=== PATIENT | female | born 1970 | race Caucasian/White ===

== ENCOUNTER → 2023-12-30 10:01 | Outpatient (REF) | payer OTHER, SELFPAY | LOC: RAD 10:01 | PROVIDERS: ATTENDING PHYSICIAN Physician Assistant | DX: S89.92XA Unspecified injury of left lower leg, initial encounter (principal) | CPT/HCPCS: 73590 ==

== ENCOUNTER → 2024-02-01 15:24 | Outpatient (REF) | payer OTHER, SELFPAY | LOC: WDC 15:24 | PROVIDERS: ATTENDING PHYSICIAN Nurse Practitioner Adult Health; FAMILY PHYSICIAN Family Medicine | DX: Z12.31 Encounter for screening mammogram for malignant neoplasm of breast (principal) | CPT/HCPCS: 77063; 77067 ==

== ENCOUNTER → 2024-02-17 15:24 | Outpatient (REF) | payer OTHER, SELFPAY | LOC: HWRAD 15:24 | PROVIDERS: ATTENDING PHYSICIAN Family Medicine | DX: M85.89 Other specified disorders of bone density and structure, multiple sites (principal) | CPT/HCPCS: 77080 ==

== ENCOUNTER → 2024-06-08 10:06 | Outpatient (REF) | payer OTHER, SELFPAY | LOC: HWRAD 10:06 | PROVIDERS: ATTENDING PHYSICIAN Obstetrics & Gynecology Gynecologic Oncology; FAMILY PHYSICIAN Family Medicine | DX: Z15.09 Genetic susceptibility to other malignant neoplasm (principal); Z12.31 Encounter for screening mammogram for malignant neoplasm of breast; R10.30 Lower abdominal pain, unspecified | CPT/HCPCS: 76830; 76856 ==

== ENCOUNTER → 2024-06-12 08:36 | Outpatient (REF) | payer OTHER, SELFPAY | LOC: RAD 08:36 | PROVIDERS: ATTENDING PHYSICIAN Obstetrics & Gynecology Gynecologic Oncology; FAMILY PHYSICIAN Family Medicine | DX: Z15.09 Genetic susceptibility to other malignant neoplasm (principal); Z12.31 Encounter for screening mammogram for malignant neoplasm of breast; R10.30 Lower abdominal pain, unspecified | CPT/HCPCS: 71260; 74177; Q9967 ==

== ENCOUNTER → 2024-07-11 06:28 | Day surgery (SDC) | payer OTHER, SELFPAY | LOC: GI 06:28 | PROVIDERS: ATTENDING PHYSICIAN Internal Medicine | DX: Z15.09 Genetic susceptibility to other malignant neoplasm (principal); K22.9 Disease of esophagus, unspecified; K29.70 Gastritis, unspecified, without bleeding; C19 Malignant neoplasm of rectosigmoid junction; K29.50 Unspecified chronic gastritis without bleeding; B37.81 Candidal esophagitis | CPT/HCPCS: 43239; 45378; 88305; 88342 ==

== ENCOUNTER 2024-09-12 06:10 | Day surgery (SDC) | payer OTHER, SELFPAY ==
[2024-08-29 08:23] VITALS: BMI 24.2
[2024-08-29 08:53] LABS: % Basophils 0.4 % (0-2); % Eosinophils 1.6 % (0-6); % Immature Granulocytes 0.3 % (0-0.5); % Lymphocytes 17.5 % (20.5-51.1); % Monocytes 6.5 % (1.7-9.3); % Neutrophils 73.7 % (42.2-75.2); Absolute Eosinophils 0.1 10^3/uL (0-0.7); Absolute Lymphocytes 1.2 10^3/uL (1.2-3.4); Absolute Monocytes 0.5 10^3/uL (0.1-0.6); Absolute Neutrophils 5.1 10^3/uL (1.4-6.5); Hemoglobin 15.2 g/dL (12.0-16.0); Mean Corp Hgb Conc. 33.8 g/dL (33.0-37.0); Mean Corpuscular Hgb 28.8 pg (27.0-31.0); Mean Corpuscular Volume 85.2 fL (81.0-99.0); Mean Platelet Volume 9.5 fL (7.4-10.4); Nucleated Red Blood Cells % 0 %; Platelet Count 250 10^3/uL (130-400); Red Blood Cell Count 5.28 10^6/uL (4.20-5.40); Red Cell Dist. Width 12.7 % (11.5-14.5); White Blood Cell Count 6.9 10^3/uL (4.8-10.8)
[2024-08-29 09:27] LABS: ALT (SGPT) 56 U/L (0-35); AST (SGOT) 38 U/L (14-36); Albumin 4.8 g/dl (3.5-5.0); Alkaline Phosphatase 99 U/L (38-126); Blood Urea Nitrogen 17 mg/dl (7-17); Calcium 9.9 mg/dl (8.4-10.2); Carbon Dioxide 28 mmol/L (22-30); Chloride 101 mmol/L (98-107); Estimated Creatinine Clearance 49 ml/min; Glucose 102 mg/dl (70-99); Potassium 4.3 mmol/L (3.5-5.1); Sodium 142 mmol/L (135-145); Total Bilirubin 0.7 mg/dl (0.2-1.3); Total Protein 7.7 g/dl (6.3-8.2); eGFR > 60.00
--- NOTE | 2024-09-11 16:33 | W.CON.GYNONC ---
Chief Complaint
-
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
History of Present Illness
53 yo �0�0�3 white female presenting for initial consultation referred to me by a genetic counselor. She undergoes routine
gynecologic examination, has been a resident in this area for 7 years. Gynecologic exam typically performed by Siri Quigley. She
has had 3 prior vaginal deliveries 1824 and 29 years ago
Patient is status post open abdominal hysterectomy in 2013 in [place].
She feels that she has been menopausal for approximately 1�1/2�year
Past medical history significant for seasonal allergies, cystic acne and GERD
Past surgical history includes breast lumpectomy as well as hysterectomy
Family history significant for mother with sebaceous cyst carcinoma the workup of which revealed Jacobs syndrome. Maternal
grandfather with pancreatic and liver cancer, maternal grand father with stomach cancer, 2 maternal aunts with breast cancer
Patient denies any tobacco alcohol drug and marijuana use
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
She is , she is in a relationship and is sexually active
She is here today with complaints of light mucus pink discharge with wiping. Some vaginal burning no itching It started after
intercourse but has not had intercourse for a month and is still seeing it. Denies pain with urination but long hx of frequent urination
followed by urology. Has not had a pap since her hysterectomy.
Medical History
Allergies
Allergies reflect when allergies were last updated in [facility].
minocycline Allergy (Verified 09/04/24 15:51)
Hives
prednisone Allergy (Verified 09/04/24 15:51)
Hives
Sulfa (Sulfonamide Antibiotics) Allergy (Verified 09/04/24 15:51)
redness/swelling
Physical Exam
Physical Exam
Ckuwep=493.80lb, Temp=97.3f, Pulse=93, Resp=18, ZupajladDZ=177, DiastolicBP=75, O2
Sat=98%
ECOG 0: Fully active, able to carry on all pre�disease performance without restriction
Physical Exam
Pelvic Examination:
External normal labia, urethra, anus.
Vagina: Normal mucosa. The posterior fourchette at the vaginal opening is minimal erythema, tender to palpation
no obvious discharge or bleeding
Adnexa: No pelvic mass.
RVE: no masses or nodularity
General: Well developed, well nourished patient. In no acute distress.
Neck: No thyromegaly. No cervical lymphadenopathy.
Lungs: Clear to auscultation. Good air movement bilaterally.
Cardiac: Regular rate. Regular rhythm. No murmurs appreciated.
Abdomen: Abdomen is soft. Non�tender to palpation. Non�distended.
Extremities: No edema.
Hematologic/Lymphatic: No palpable lymphadenopathy.
Musculoskeletal: Normal range of motion. Strength and Tone are normal.
Neurologic: Speech is fluent. Normal gait and station. Cranial nerves intact.
Results
-
08/29/24 07:42
08/29/24 07:42
CT�chest�abdomen�and�pelvis�Jessie�2024�shows�chest�to�be�normal.�There�is�a�1.8�cm�lesion�lateral�left�hepatic�lobe�demonstrating
enhancement�matching�consistent�with�hemangioma,�focal�fatty�infilteration�along�the�falciform�ligament.�There�is�a�dilated�blind
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
There�is�no�enlarged�lymph�nodes�Premier�bowel�was�within�normal�limits.�Ovaries�cannot�be�seen�distinctly.�There�is�a�small�fatcontaining�umbilical�hernia.
Impression / Plan
-
I spoke with the patient and her mother today, I printed and reviewed NCCN guidelines regarding multiple cancers related to MSH6.
Top 3 concerns include colorectal cancers, endometrial and ovarian cancer. She is status post hysterectomy.
Patient is up date with colonoscopy and endoscopy,
Tumor marker CA125 and CEA was normal which is reassuring
I am moving forward with recommendation for risk�reducing bilateral salpingo�oophorectomy . Current risk of ovarian cancer is
approximately 13% compared to average baseline population which is at 1 to 2%. At the same time appendectomy will also be
done based on the results of the CT above. In my opinion she can be significantly helped with potential risk of ovarian cancer if she
chooses to undergo surgery. Appendectomy will be performed at the same time.
Informed consent was signed in the office today, we will proceed with surgery as planned September 10.
[2024-09-12] VITALS (18 sets, daily range): BP systolic 88–118; BP diastolic 48–83; BMI 24.2
[2024-09-12] MEDS: NEURONTIN 300 MG PO (06:50)
[2024-09-12] MEDS: TYLENOL 1000 MG PO (06:50)
[2024-09-12] MEDS: HEPARIN 5000 UNITS SC (06:50)
[2024-09-12] MEDS: MOBIC 15 MG PO (07:27)
--- NOTE | 2024-09-12 09:18 | OR.RPT ---
Operative Report
Operative Report
Date of procedure: September 12, 2024
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
Postoperative diagnosis: Same plus bilateral normal-appearing tubes and ovaries, appendix with mucocele
Surgeon: Brody Ramírez MD
Assist: Loraine Contreras PA-C
Procedure:
Robotic assisted laparoscopic bilateral salpingo-oophorectomy with intra-abdominal lysis of adhesions
Robotic assisted laparoscopic appendectomy
Anesthesia: General Endotracheal intubation
Estimated blood loss: 50 cc
Complication: None
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 She has had a prior total abdominal hysterectomy as an open laparotomy procedure. Preoperative imaging revealed presence of a
appendiceal mass suggestive of mucocele. GI imaging EGD colonoscopy have been otherwise normal. She is desirous of bilateral salpingo-oophorectomy for cancer prevention.
Procedure in detail: This patient was brought to the operating room and placed in supine position general anesthesia was administered she was intubated without any difficulty, appropriate IVs were placed by anesthesia team, OG tube was placed. Tap
block was performed by anesthesia. She was placed in lithotomy position using yellowfin stirrups, she was prepped on the abdomen perineum and vagina, Caballero catheter was placed to drain the bladder. Timeout procedure was carried out she had
received Ancef 2 g and Flagyl 500 mg. She had received DVT prophylaxis with heparin subcutaneous injection preoperatively. Next Veress needle was inserted just below left subcostal margin into the peritoneal cavity and insufflation with CO2 gas
was performed up to pressure of 15 mmHg. 8 mm X Xi robotic port was introduced approximately 25 cm cephalad to symphysis pubis into the peritoneal cavity,
video camera was used to survey the upper abdomen, right and left diaphragms are normal, the right lobe of the liver appears to have significant area of fibrosis, left lobe is normal. Spleen and stomach and omentum are unremarkable. There are some
adhesions of the omentum to the right lower quadrant and right paracolic gutter peritoneum. Uterus is absent peritoneal surfaces are without any nodularity or carcinomatosis.
Next we went ahead and placed 8 mm robotic ports in the right upper quadrant left upper quadrant and left lateral abdomen and a 12 mm port was placed in the right lower quadrant. The patient was placed in 30 degree Trendelenburg and robotic system
was docked. We took down the adhesions of the omentum to the right pelvic sidewall and right lower quadrant and right paracolic gutter in order to expose external iliac vessels. We turned our attention to the left side, the sigmoid colon epiploica
was adherent to the left ovary and the left ovary was adherent to the stump of left round ligament. Round ligament was sealed and divided, attachments of the pericolonic tissue to the left adnexa and left ovary were taken down until the ovary was
completely freed up. The retroperitoneum was opened and infundibulopelvic ligament was freed up and isolated. The course of the ureter was visualized while it was vermiculation. A window was created between ureter and IP ligament. IP ligament
was sealed 3 times and divided. Left tube and ovary was placed in a 5 mm laparoscopic bag for future retrieval. Attention was turned to the right ovary. The right ovary was adherent to the right pelvic sidewall, it was retracted medially, the
retroperitoneum was opened external iliac vessel was visualized, retroperitoneum was explored and the course of the ureter was directly visualized while it was vermiculating. An avascular window was opened between ureter and IP ligament and the IP
ligament was developed above the pelvic brim. IP ligament was sealed 3 times and divided the right tube and ovary was placed in a 5 mm laparoscopic bag and immediately removed through the 12 mm right lower quadrant port. Next we mobilized the
cecum, mesoappendix was examined and visualized, it was divided into 3 pedicles and sealed with bipolar cautery and divided. We used a Endo JOHNNY stapler with a 45 mm - 1.5 mm load to staple across the cecum below the base of the appendix. Stapler
was fired and the specimen of the appendix was placed in a 10 mm endoscopic bag. We examined the cecum and 3 rows of jac had already been fired. At this point all operative sites were examined and there was no evidence of bleeding. We
proceeded to remove all instruments and undocked the robotic system pneumoperitoneum was released. Left tube and ovary as well as appendix was removed from the 12 mm port site. The fascia at the 12 mm port site was closed with 0 Vicryl suture in a
[id number]-[id number] fashion. 4-0 Monocryl suture was used to close the skin incisions and all laparoscopic ports using subcuticular closure in an interrupted fashion. All incisions were injected with Marcaine. Caballero catheter was removed. The patient
was awakened extubated and returned back to recovery room stable awake and extubated condition. Counts of laps instruments and needle was correct x 2. I was present and scrubbed for entire procedure as dictated above.
Disposition: To PACU, awake and extubated
== END 2024-09-12 13:00 | disposition home or self-care (01) ==
LOC: SDS 06:10
PROVIDERS: ATTENDING PHYSICIAN Obstetrics & Gynecology Gynecologic Oncology; FAMILY PHYSICIAN Family Medicine
DX: C18.1 Malignant neoplasm of appendix (principal); K66.0 Peritoneal adhesions (postprocedural) (postinfection); Z15.09 Genetic susceptibility to other malignant neoplasm; Z90.710 Acquired absence of both cervix and uterus
CPT/HCPCS: 58661; 44970; 88304; 88305; 88307; 36415; 80053; 85025; 86850; 86900; 86901; 88342; 93005; 94002

== ENCOUNTER 2025-01-24 11:50 | Inpatient (IN) | payer OTHER, SELFPAY ==
[2025-01-17 08:59] LABS: Hemoglobin 15.2 g/dL (12.0-16.0); Mean Corp Hgb Conc. 32.3 g/dL (33.0-37.0); Mean Corpuscular Hgb 28.6 pg (27.0-31.0); Mean Corpuscular Volume 88.5 fL (81.0-99.0); Mean Platelet Volume 9.4 fL (7.4-10.4); Platelet Count 228 10^3/uL (130-400); Red Blood Cell Count 5.31 10^6/uL (4.20-5.40); Red Cell Dist. Width 12.6 % (11.5-14.5); White Blood Cell Count 6.4 10^3/uL (4.8-10.8)
[2025-01-17 09:26] LABS: APTT 30.3 Sec (23.4-35.0); Glycohemoglobin (HgbA1c) 5.5 % (4.0-5.6); INR 0.84
[2025-01-17 10:05] LABS: ALT (SGPT) 64 U/L (0-35); AST (SGOT) 39 U/L (14-36); Alkaline Phosphatase 131 U/L (38-126); Blood Urea Nitrogen 23 mg/dl (7-17); Calcium 10.1 mg/dl (8.4-10.2); Carbon Dioxide 29 mmol/L (22-30); Chloride 99 mmol/L (98-107); Glucose 102 mg/dl (70-99); Potassium 4.4 mmol/L (3.5-5.1); Sodium 139 mmol/L (135-145); Total Protein 8.1 g/dl (6.3-8.2); eGFR > 60.00
[2025-01-17 10:49] LABS: CEA 0.36 ng/ml
[2025-01-17 14:15] VITALS: BMI 22.5
[2025-01-24] VITALS (10 sets, daily range): BP systolic 95–121; BP diastolic 51–82; BMI 22.5
[2025-01-24] MEDS: NORMOSOL-R/PLASMALYTE-A 1000 IV ×2 (12:15→20:16)
[2025-01-24] MEDS: TYLENOL 1000 MG PO (12:20)
[2025-01-24] MEDS: HEPARIN 5000 UNITS SC (12:20)
[2025-01-24] MEDS: ENTEREG 12 MG PO (12:20)
--- NOTE | 2025-01-24 18:40 | W.OR.COLCA ---
Colon Cancer Post Op Note
Immediate Post Op
Primary Surgeon: David Izaguirre MD
Assistants: SUSIE Gamboa and MAVIS Seay
Pre-op Diagnosis: History of appendiceal cancer, HNPCC
Post-op Diagnosis: Same
Procedure Performed: Robotic right colectomy with intracorporeal anastomosis & primary repair of umblical hernia
Anesthesia Type: GET
Specimen / Cultures: Right colon
Estimated Blood Loss: 17cc
Complications: None
Operative Findings: No evidence of metastatic disease
Isoperistaltic, intracorporeal anastomosis
1 cm umbilical hernia
Patient's SO updated in the waiting room.
Colon Resection
Colon Resection
Operation performed with curative intent: Yes
Tumor Location: Cecum (appendix)
Right Hemicolectomy: Ileocolic and Right Colic
[2025-01-24] MEDS: ZOFRAN 4 MG IV (18:50)
[2025-01-24] MEDS: COMPAZINE 5 MG IV (19:22)
[2025-01-24] MEDS: ZYRTEC 10 MG PO (21:46)
[2025-01-24] MEDS: TYLENOL 650 MG PO ×2 (21:46→23:25)
--- NOTE | 2025-01-24 23:12 | PTCARENOTE ---
Pt arrived from PACU 1954. Pt AAOX3, but drowsy. VSS. IVF infusing. Caballero draining yellow urine. 5 lap sites and 1 transverse OA with surgical glue. Head to toe assessment complete. oriented to room and call vitale. bed in lowest position and locked.
family at bedside. care ongoing.
[2025-01-24] MEDS: TORADOL 15 MG IV (23:25)
[2025-01-25] VITALS (7 sets, daily range): BP systolic 103–112; BP diastolic 50–67; BMI 23.7
[2025-01-25] MEDS: TORADOL 15 MG IV ×3 (05:04→17:23)
[2025-01-25] MEDS: TYLENOL 650 MG PO ×5 (05:04→20:59)
[2025-01-25] MEDS: NORMOSOL-R/PLASMALYTE-A 1000 IV ×2 (06:03→06:06)
[2025-01-25 07:14] LABS: % Immature Granulocytes 0.5 % (0-0.5); % Lymphocytes 4.4 % (20.5-51.1); % Monocytes 3.7 % (1.7-9.3); % Neutrophils 91.4 % (42.2-75.2); Absolute Immature Granulocytes 0.1 10^3/uL (0-0.05); Absolute Lymphocytes 0.5 10^3/uL (1.2-3.4); Absolute Monocytes 0.4 10^3/uL (0.1-0.6); Absolute Neutrophils 9.8 10^3/uL (1.4-6.5); Hematocrit 38.9 % (37.0-47.0); Hemoglobin 13.1 g/dL (12.0-16.0); Mean Corp Hgb Conc. 33.7 g/dL (33.0-37.0); Mean Corpuscular Volume 86.3 fL (81.0-99.0); Mean Platelet Volume 9.7 fL (7.4-10.4); Nucleated Red Blood Cells % 0 %; Platelet Count 193 10^3/uL (130-400); Red Blood Cell Count 4.51 10^6/uL (4.20-5.40); Red Cell Dist. Width 12.4 % (11.5-14.5); White Blood Cell Count 10.7 10^3/uL (4.8-10.8)
[2025-01-25 07:53] LABS: Blood Urea Nitrogen 11 mg/dl (7-17); Carbon Dioxide 22 mmol/L (22-30); Chloride 105 mmol/L (98-107); Estimated Creatinine Clearance 61 ml/min; Glucose 113 mg/dl (70-99); Sodium 138 mmol/L (135-145); eGFR > 60.00
[2025-01-25] MEDS: ENTEREG 12 MG PO ×2 (07:59→20:18)
[2025-01-25] MEDS: PROTONIX 40 MG PO (07:59)
[2025-01-25] MEDS: ALDACTONE 100 MG PO (08:00)
[2025-01-25 08:39] LABS: Potassium 4.1 mmol/L (3.5-5.1)
--- NOTE | 2025-01-25 14:16 | CM ---
Initial assessment completed
Pt lives with her 3 adult children in a 2 story home; 2 steps to enter, 12 steps to 2nd fl
Independent at baseline, employed, drives
DME - none
SNF/HH - no past hx
Has ride at d/c
PCP - Abraham Ferrera
Pharm -[facility] in [place]
Plan - anticipate home no needs
--- NOTE | 2025-01-25 15:16 | W.PN.CRS1 ---
Today's Communication / Plan
-
as below
Assessment/Plan
-
54-year-old female with history of appendiceal cancer, presents for elective surgery
POD 1 robotic right hemicolectomy
AFVSS
WBC 10.7, Hb 13.1, Cr 0.8
� If tolerating clears, okay to advance to full's for dinner
� Pain control with Tylenol, Toradol, oxycodone, Dilaudid as needed; continue Entereg until discharge
� Will start DVT PPx with Lovenox
� DC Caballero, monitor for void
� Encourage I-S, OOB
Subjective Data
Subjective Data
Date of Service: January 25, 2025
No overnight events. Denies any N/V. No gas or bowel movements yet. + Caballero. Pain controlled.
Objective Data
-
Vital Signs
Temp Pulse Resp BP Pulse Ox
97.9 F 95 16 108/67 98
01/25/25 11:52 01/25/25 11:52 01/25/25 11:52 01/25/25 11:52 01/25/25 11:52
Intake & Output
01/24/25 01/25/25 01/26/25
06:59 06:59 06:59
Intake Total 1680 / 1680
Output Total 1200 / 1200
Balance 480 / 480
Intake:
Oral fluids 480 / 480
IV fluids (Total) 1200 / 1200
Normosol 100 / 100
Output:
Urine, Caballero 1200 / 1200
Lab Results
01/25/25 06:06
01/25/25 06:06
Physical Exam
-
General: No Acute Distress and AOx3
HEENT: Grossly Normal
Abdomen: Soft, Non Distended, Tender (Appropriately tender near incisions), No Guarding and No Rebound
Skin: Warm and Dry
Wound: No Signs of Infection and No Skin Erythema
[2025-01-25] MEDS: NORMOSOL-R/PLASMALYTE-A IV (16:54)
[2025-01-25] MEDS: LOVENOX 40 MG SC (17:23)
[2025-01-25] MEDS: ZYRTEC 10 MG PO (20:18)
[2025-01-26] MEDS: TORADOL 15 MG IV ×3 (00:55→11:51)
[2025-01-26] MEDS: TYLENOL 650 MG PO ×3 (00:55→11:50)
[2025-01-26] MEDS: NORMOSOL-R/PLASMALYTE-A IV (02:46)
[2025-01-26] MEDS: TYLENOL PO (05:00)
[2025-01-26 06:00] VITALS: BMI 23.2
[2025-01-26 07:15] VITALS: BP 109/64
[2025-01-26 08:01] LABS: % Basophils 0.3 % (0-2); % Eosinophils 0.6 % (0-6); % Immature Granulocytes 0.4 % (0-0.5); % Monocytes 6.8 % (1.7-9.3); % Neutrophils 71.9 % (42.2-75.2); Absolute Eosinophils 0.1 10^3/uL (0-0.7); Absolute Lymphocytes 1.9 10^3/uL (1.2-3.4); Absolute Monocytes 0.7 10^3/uL (0.1-0.6); Hematocrit 38.5 % (37.0-47.0); Hemoglobin 12.6 g/dL (12.0-16.0); Mean Corp Hgb Conc. 32.7 g/dL (33.0-37.0); Mean Corpuscular Hgb 28.5 pg (27.0-31.0); Mean Corpuscular Volume 87.1 fL (81.0-99.0); Mean Platelet Volume 9.6 fL (7.4-10.4); Nucleated Red Blood Cells % 0 %; Platelet Count 184 10^3/uL (130-400); Red Blood Cell Count 4.42 10^6/uL (4.20-5.40); Red Cell Dist. Width 12.6 % (11.5-14.5); White Blood Cell Count 9.7 10^3/uL (4.8-10.8)
[2025-01-26] MEDS: PROTONIX 40 MG PO (08:14)
[2025-01-26] MEDS: ALDACTONE 100 MG PO (08:14)
[2025-01-26] MEDS: ENTEREG 12 MG PO (08:15)
[2025-01-26 08:44] LABS: Blood Urea Nitrogen 14 mg/dl (7-17); Carbon Dioxide 29 mmol/L (22-30); Chloride 104 mmol/L (98-107); Estimated Creatinine Clearance 61 ml/min; Glucose 88 mg/dl (70-99); Potassium 3.7 mmol/L (3.5-5.1); Sodium 138 mmol/L (135-145); eGFR > 60.00
--- NOTE | 2025-01-26 10:14 | W.PN.CRS1 ---
Today's Communication / Plan
-
low residue diet
likely d/c later today
Assessment/Plan
-
54-year-old female with history of appendiceal cancer, presents for elective surgery
POD 2 robotic right hemicolectomy
AFVSS, labs normal
� Advanced to low residue diet
� Pain control with Tylenol, Toradol, oxycodone, Dilaudid as needed; continue Entereg until discharge
� DVT PPx with Lovenox, TEDs/SCDS in place
� Voiding post espana removal
� Encourage I-S, OOB
- Okay for discharge later today if tolerating a diet. All discharge instructions discussed with patient including mediations, activity levels, and follow up. All questions answered.
Subjective Data
Procedure
01/24/2025- robotic right hemicolectomy
Subjective Data
Date of Service: January 26, 2025
Patient states she is doing well. She has flatus. Her pain is controlled. She denies nausea or vomiting.
Objective Data
-
Vital Signs
Temp Pulse Resp BP Pulse Ox
98.5 F 84 16 109/64 97
01/26/25 07:15 01/26/25 07:15 01/26/25 07:15 01/26/25 07:15 01/26/25 07:15
Intake & Output
01/25/25 01/26/25 01/27/25
06:59 06:59 06:59
Intake Total 1680 / 1680 1960 / 1960 240 / 240
Output Total 1200 / 1200 2800 / 2800
Balance 480 / 480 -840 / -840 240 / 240
Intake:
Oral fluids 480 / 480 960 / 960 240 / 240
IV fluids (Total) 1200 / 1200 1000 / 1000
Normosol 100 / 100
Output:
Urine, [place] 1200 / 1200 1300 / 1300
Urine, Voided 1500 / 1500
Other:
Number of approximated MODERATE 2 1
amounts of urine
Lab Results
01/26/25 05:55
01/26/25 05:55
Physical Exam
-
General: No Acute Distress and AOx3
Abdomen: Soft, Non Distended and Tender (mild around incisions)
Skin: Warm and Dry
Incision: Clear, Dry, Intact
--- NOTE | 2025-01-26 10:18 | W.DS.TRANS ---
DC Summary - Charge Aide
-
Discharge Instructions:
Sleep Apnea Risk Low
Discharge Diagnosis/Procedures Robotic right colectomy with intracorporeal
anastomosis & primary repair of umblical hernia
Diet Low Residue
Activity No strenuous activity
Additional Activity No lifting over 10lbs (gallon of milk)
Driving Restrictions No driving for 1 week
Bathing Restrictions OK to Shower
Wound Care Allow glue to naturally fall off. Do not pick at
incisions.
Instructions: Low-fiber diet
Stand-Alone Forms:
Changes to Home Medications: No
Discharge Medications:
DC Medications w/original date entered in [facility]
Magnesium With Silica 300 mg PO HS 09/04/24
Multivitamin Women 50 Plus 1 tab PO DAILY 09/04/24
Plant Calcium Bone Strength 1 tab PO QPM 09/04/24
Probiotic 1 cap PO QPM 09/04/24
levocetirizine 5 mg tablet 5 mg PO HS 09/04/24
lifitegrast 5 % eye drops in a dropperette (Xiidra) 1 drp ophthalmic (eye) Q12H 09/04/24
spironolactone 50 mg tablet 100 mg PO DAILY 09/04/24
tretinoin 0.05 % lotion ([place]) 1 applic topical HS 09/04/24
Gaviscon Extra Strength 1 dose PO BID 01/12/25
estradiol 1 applic topical .2 TIMES A WEEK 01/12/25
pantoprazole 40 mg tablet,delayed release 40 mg PO DAILY 01/12/25
Home Medication Changes
Pending Results: Yes
Additional Pending Results:
OR pathology
--- NOTE | 2025-01-26 10:34 | CM ---
Chart reviewed; met with pt
Pt for discharge today
Reports has ride home
Plan - home no needs
[2025-01-26] MEDS: FLUSH (NSS) 2 FLUSH IV (11:53)
[2025-01-26 15:05] VITALS: BP 101/62
== END 2025-01-26 16:00 | disposition home or self-care (01) | DRG 331 ==
LOC: 2 SOUTH 11:50
PROVIDERS: Physician Assistant; ADMITTING PHYSICIAN Surgery; FAMILY PHYSICIAN Family Medicine
PROC: 0WQF4ZZ Repair Abdominal Wall, Percutaneous Endoscopic Approach (ICD-10-PCS; 2025-01-24)
PROC: 8E0W4CZ Robotic Assisted Procedure of Trunk Region, Percutaneous Endoscopic Approach (ICD-10-PCS; 2025-01-24)
PROC: 0DTF4ZZ Resection of Right Large Intestine, Percutaneous Endoscopic Approach (ICD-10-PCS; 2025-01-24)
DX: C18.1 Malignant neoplasm of appendix (principal); K42.9 Umbilical hernia without obstruction or gangrene; Z85.038 Personal history of other malignant neoplasm of large intestine; Z15.09 Genetic susceptibility to other malignant neoplasm
CPT/HCPCS: 88307; 36415; 80048; 80053; 82378; 83036; 85025; 85027; 85610; 85730; 86850; 86900; 86901; 93005; J1335

== ENCOUNTER → 2025-03-06 14:49 | Outpatient (REF) | payer OTHER, SELFPAY | LOC: WDC 14:49 | PROVIDERS: ATTENDING PHYSICIAN Nurse Practitioner Adult Health; FAMILY PHYSICIAN Internal Medicine; PRIMARYCARE PHYSICIAN Family Medicine | DX: Z12.31 Encounter for screening mammogram for malignant neoplasm of breast (principal) | CPT/HCPCS: 77063; 77067 ==

== ENCOUNTER → 2025-04-26 12:49 | Outpatient (REF) | payer OTHER, SELFPAY | LOC: WDC 12:49 | PROVIDERS: ATTENDING PHYSICIAN Obstetrics & Gynecology Gynecologic Oncology; FAMILY PHYSICIAN Family Medicine | DX: R92.2 Inconclusive mammogram (principal) | CPT/HCPCS: 76641 ==

== ENCOUNTER 2025-07-12 06:20 | Day surgery (SDC) | payer OTHER, SELFPAY | END 2025-07-12 09:27 | disposition home or self-care (01) | LOC: GI 06:20 | PROVIDERS: ATTENDING PHYSICIAN Internal Medicine | DX: Z12.11 Encounter for screening for malignant neoplasm of colon (principal); K63.89 Other specified diseases of intestine; Z98.0 Intestinal bypass and anastomosis status; K29.70 Gastritis, unspecified, without bleeding; R12 Heartburn; K29.00 Acute gastritis without bleeding; Z15.09 Genetic susceptibility to other malignant neoplasm; Z85.038 Personal history of other malignant neoplasm of large intestine | CPT/HCPCS: 45378; 43239; 88305; 88342 ==

== ENCOUNTER → 2025-08-01 15:27 | Outpatient (REF) | payer OTHER, SELFPAY | LOC: MRI 3T 15:27 | PROVIDERS: ATTENDING PHYSICIAN Physician Assistant Surgical; FAMILY PHYSICIAN Family Medicine | DX: Z12.31 Encounter for screening mammogram for malignant neoplasm of breast (principal); Z15.09 Genetic susceptibility to other malignant neoplasm; R10.30 Lower abdominal pain, unspecified; N95.2 Postmenopausal atrophic vaginitis; C18.1 Malignant neoplasm of appendix; K38.8 Other specified diseases of appendix; R92.8 Other abnormal and inconclusive findings on diagnostic imaging of breast; N95.1 Menopausal and female climacteric states | CPT/HCPCS: 77049; A9585 ==

== ENCOUNTER → 2025-10-16 14:45 | Outpatient (REF) | payer OTHER, SELFPAY | LOC: WDC 14:45 | PROVIDERS: ATTENDING PHYSICIAN Surgery; FAMILY PHYSICIAN Family Medicine | DX: R92.8 Other abnormal and inconclusive findings on diagnostic imaging of breast (principal); D24.1 Benign neoplasm of right breast; Z15.09 Genetic susceptibility to other malignant neoplasm | CPT/HCPCS: 76642 ==